=== PATIENT | male | born 1970 | race American Indian/Alaskan Native ===

== ENCOUNTER 2024-08-17 09:34 | Outpatient (AMB) | payer MEDICAID, SELFPAY ==
[2024-08-17 09:46] VITALS: BP 137/80; PULSE 51; RESP 16; TEMP 36.6; O2SAT 99; BMI 26.6
--- NOTE | 2024-08-17 09:46 | ACNOTE_ITS ---
Vital Signs 08/17/24 09:46 Height 1.83 m Height Method Stated Weight 89.131 kg Weight Measurement Method Standing Scale BMI 26.6 BP 137/80 H Blood Pressure Source Automatic Cuff Blood Pressure Location Left Upper Arm Position Sitting Respiration 16 Pulse 51 L Pulse Source Monitor Temp 97.8 F Temp Source Oral Pulse Oximetry (%) 99 Oxygen Delivery Method Room Air Allergies/Meds Allergies & Medications Allergies sulfamethoxazole [From Bactrim] Allergy (Severe, Verified 08/31/24 09:53) Rash trimethoprim [From Bactrim] Allergy (Severe, Verified 08/31/24 09:53) Rash diphenhydramine Allergy (Intermediate, Verified 08/31/24 09:53) RASH Medication Reconciliation metformin 1,000 mg tablet 1,000 mg PO BID 03/09/18 [History Confirmed 08/31/24] sitagliptin phosphate 25 mg tablet (Januvia) 25 mg PO QDAY 04/20/19 [History Confirmed 08/31/24] aspirin 81 mg tablet,delayed release 81 mg PO QDAY #30 tabs 08/17/24 [Rx Confirmed 08/31/24] cholecalciferol (vitamin D3) 1,250 mcg (50,000 unit) capsule 1,250 mcg PO QWEEK #5 caps 08/17/24 [Rx Confirmed 08/31/24] ketoconazole 2 % topical cream 1 applic topical BID #60 grams 08/17/24 [Rx Confirmed 08/31/24] loratadine 10 mg tablet 10 mg PO QDAY #30 tabs 08/17/24 [Rx Confirmed 08/31/24] ticagrelor 90 mg tablet (Brilinta) 90 mg PO BID #60 tabs 08/17/24 [Rx Confirmed 08/31/24] triamcinolone acetonide 0.1 % topical cream 1 applic topical BID #454 grams 08/17/24 [Rx Confirmed 08/31/24] MA Intake Visit Data Collection New Patient or Established: Established Patient (seen at [facility] within 3 years) Seen by Clinical Staff ONLY (RN/JAE): No Pain Present Currently: No Pain scale:: 0 Pain Scale Used: Smith-Bangura/Numerical PCP or OBGYN visit in last 3 months: Yes Do You Feel Safe at Home: Yes Smoking Status Smoking Status: Never smoker Immunization / Flu Flu Vaccine in the Last 12 Months: No Flu Vaccine Exclusion Criteria: No Exclusion Criteria Past Medical History Past Medical History NEUROLOGIC: Positive Neurological Disorders, Seizures (LAST ONE IN 1997) and Skelton's Palsy (AT 21 YRS OLD) CARDIAC: Positive Cardiac Disorders, Hypercholesterolemia and Hypertension (TAKES MED); Negative Congestive Heart Failure RESPIRATORY: Negative Chronic Obstructive Pulmonary Disease (COPD) GASTROINTESTINAL: Negative Gastrointestinal Disorders GENITOURINARY: Negative Genitourinary Disorders or Renal Disease MUSCULOSKELETAL: Positive Arthritis, Degenerative Disk Disease and Carpal Tunnel Syndrome (2009 RIGHT HAND) ENDOCRINE: Positive Endocrine Disorders and Diabetes Mellitus Type 2 (takes medication); Negative Diabetes Mellitus Type 1 HEMATOLOGIC: Negative Blood Disorders PSYCHO/SOCIAL: Positive Depression and Anxiety OTHER HISTORY: Positive Hospitalization (HOSP 1996 FOR IRREGULAR HR MAYBE STATED DUE TO PANIC ATTACK) and Chicken Pox; Negative Autoimmune Disease, Shingles, Falls, Blood Transfusions, Blood Transfusion Reaction, Anesthesia Reactions, Chemotherapy or Radiation Therapy Family History FAMILY HISTORY: Positive Family Respiratory Disorders (MOTHER (COPD)), Family Cardiac Disorders (MOTHER (HTN)) and Family Surgery (SISTER,MOTHER); Negative Family Psychiatric Problems, Family Gastrointestinal Problems, Family Cancer or Family Anesthesia Reaction Surgical History SURGICAL: Positive Joint Replacement; Negative Cardiac Surgery or Abdominal Surgery Social History SMOKING STATUS: Smoking status: Never smoker ALCOHOL: Alcohol Intake: Never HOUSING: Housing: Apartment Patient Portal Questionaires Social History Living Situation History Housing: Apartment Tobacco History Smoking Status: Never smoker Alcohol History Alcohol Intake: Never Domestic Abuse History Do You Feel Safe at Home: Yes Review of Systems Report any current symptoms Only answer those that you have currently: Past Medical History Past Medical History Have you ever been diagnosed with any of the following: Neurological Problems Seizures: Yes (LAST ONE IN 1997) Skelton's Palsy: Yes (AT 21 YRS OLD) Cardiology Problems Hypercholesterolemia: Yes Congestive Heart Failure: No Hypertension: Yes (TAKES MED) Respiratory Problems Chronic Obstructive Pulmonary Disease (COPD): No Genital/Urinary Problems Renal Disease: No Musculoskeletal Problems Arthritis: Yes Degenerative Disk Disease: Yes Carpal Tunnel Syndrome: Yes (2009 RIGHT HAND) Endocrine Problems Diabetes Mellitus Type 1: No Diabetes Mellitus Type 2: Yes (takes medication) Psychologic Problems Depression: Yes Anxiety: Yes Other Problems Hospitalization: Yes (HOSP 1996 FOR IRREGULAR HR MAYBE STATED DUE TO PANIC ATTACK) Autoimmune Disease: No Shingles: No Falls: No Blood Transfusions: No Blood Transfusion Reaction: No Anesthesia Reactions: No Chemotherapy: No Radiation Therapy: No Chicken Pox: Yes History of Present Illness HPI Narrative 54-year-old male with past medical history of coronary artery disease status p ost 1 stent placed in February 2024, hypertension, type 2 diabetes presenting to the [facility] to establish care. Patient has not been able to see a international logistics analyst since having stent placed; would like referral to cardiology. Stents were placed by Dr. Myers in [place]. Patient denies having any concerning cardiac symptoms at home, denies having chest pain/tightness, shortness of breath, palpitations, orthopnea, paroxysmal nocturnal dyspnea, lower extremity swelling. Patient also would like a complete lab workup and refill of medications.Patient has stopped taking his blood pressure and diabetes medications and has switched over to lifestyle modifications as he is not the biggest fan of medications. Patient presented today with his bedside who also provides some history. Review of Systems Review of Systems Narrative Review of Systems: All 12 systems assessed and the patient denies unless otherwise stated in HPI. Objective/Exam Narrative Physical exam: Physical Exam: GENERAL: Awake, quiet, answering questions appropriately, appears stated age HEENT: NC/AT. Moist mucosa. PERRLA/EOMI. CARDIO: Heart RRR, no obvious murmurs, no JVD. PULM: No coughing or visible SOB. Lungs CTA B/L. GI: Abdomen soft, NT/ND, +BS. SKIN/MSK/EXT: Onychomycosis of the left greater toe.No wounds/rashes/edema/amputations noted. +Pedal pulses present B/L. NEURO: Oriented x3, miner assistant strength 5/5, Moves extremities x4. Assessment & Plan Diagnosis / Problem List (1) Coronary artery disease: Status: Acute Qualifiers: Associated angina: without angina Coronary Disease-Associated Artery/Lesion type: [place] artery [place] vs. transplanted heart: [place] heart Qualified Code(s): I25.10 - Atherosclerotic heart disease of [place] coronary artery without angina pectoris Assessment & Plan: Patient had heart attack in February 2024; status post stent placement with Dr. Myers in [place]. Patient unaware which vessel the stent was placed in; but he knows it is 1 vessel Patient takes Brilinta 90 mg twice daily and aspirin 81 mg daily Patient also has history of high blood pressure and diabetes but has stopped taking medications and wants to do lifestyle changes at this time Patient also uses some creams for psoriasis and onychomycosis, also takes loratadine and vitamin D Plan: Will refer to cardiology, Dr. Francisco Carter in [place] Full labs, CBC, BMP, lipid panel, TSH, LFTs, magnesium, A1c, vitamin D Refilled medications as listed above Will follow-up in 1 week to go over labs Orders: Orders CBC 08/17/24 Mak Marie MD Thyroid Stimulating Hormone 08/17/24 Mak Marie MD Ambulatory Hemoglobin A1C 08/17/24 Mak Marie MD Alanine Aminotransferase 08/17/24 Mak Marie MD Alkaline Phosphatase 08/17/24 Mak Marie MD Basic Metabolic Panel 08/17/24 Mak Marie MD Vitamin D 25 Hydroxy Total 08/17/24 Mak Marie MD Lipid Panel 08/17/24 Mak Marie MD Aspartate Amino Transferase 08/17/24 Mak Marie MD Magnesium 08/17/24 Mak Marie MD Additional Assessment Attending note: I, Tico Larsen MD, attest that I was physically present for the orozco portions of the service and evaluated the patient with the resident and I reviewed and discussed the case with the resident and agree with the resident's findings and plans of care as documented above. New patient to clinic. Patient had stent placed in February 2024 for coronary artery disease. History of hypert ension and diabetes mellitus type 2. He has not been able to establish with a international logistics analyst for follow-up, requesting referral which will be made today. Denies any cardiac symptoms at present. Diabetes self-care reviewed including diet, exercise, footcare, eye care. He has stopped antihypertensives and diabetic medications, trying to manage condition with lifestyle changes. Need for continuation of Brilinta emphasized. We will do full laboratory assessment and follow-up afterwards. Tico Larsen MD Physician Billing New Patient New Patient: E/M Level 3-CPT 96886 Office Procedures [facility] Level of Care Nursing/Assessment Patient Status: Established Patient Nursing Assessment/Reassessment: Medication Reconciliation, Update PMH in EMR and Vital Signs Coordination of Care: Complex Care and Chronic Disease 1-5, Education Complex Pt/Fam, Results/Orders obtained and Staff clarify orders Established Patient Charge Established Patient Point Assignment: 90 Established Patient Point Charge: Level 3 (09-115)
== END 2024-08-17 11:13 | disposition home or self-care (01) ==
PROVIDERS: Supervising Provider Internal Medicine
DX: I25.10 Atherosclerotic heart disease of native coronary artery without angina pectoris (principal); Z95.5 Presence of coronary angioplasty implant and graft; I10 Essential (primary) hypertension; E11.9 Type 2 diabetes mellitus without complications
CPT/HCPCS: 99213; G0463

== ENCOUNTER 2024-08-31 09:34 | Outpatient (AMB) | payer MEDICAID, SELFPAY ==
--- NOTE | 2024-08-31 09:47 | PD.RESCLINIC ---
Vital Signs 08/31/24 09:52 Height 1.83 m Height Method Stated Weight 89.414 kg Weight Measurement Method Standing Scale BMI 26.6 BP 150/76 H Blood Pressure Source Automatic Cuff Blood Pressure Location Left Upper Arm Position Sitting Respiration 19 Pulse 71 Pulse Source Monitor Temp 97.7 F Temp Source Oral Pulse Oximetry (%) 98 Oxygen Delivery Method Room Air Allergies/Meds Allergies & Medications Allergies sulfamethoxazole [From Bactrim] Allergy (Severe, Verified 08/31/24 09:53) Rash trimethoprim [From Bactrim] Allergy (Severe, Verified 08/31/24 09:53) Rash diphenhydramine Allergy (Intermediate, Verified 08/31/24 09:53) RASH Medication Reconciliation metformin 1,000 mg tablet 1,000 mg PO BID 03/09/18 [History Confirmed 08/31/24] sitagliptin phosphate 25 mg tablet (Januvia) 25 mg PO QDAY 04/20/19 [History Confirmed 08/31/24] aspirin 81 mg tablet,delayed release 81 mg PO QDAY #30 tabs 08/17/24 [Rx Confirmed 08/31/24] cholecalciferol (vitamin D3) 1,250 mcg (50,000 unit) capsule 1,250 mcg PO QWEEK #5 caps 08/17/24 [Rx Confirmed 08/31/24] ketoconazole 2 % topical cream 1 applic topical BID #60 grams 08/17/24 [Rx Confirmed 08/31/24] loratadine 10 mg tablet 10 mg PO QDAY #30 tabs 08/17/24 [Rx Confirmed 08/31/24] ticagrelor 90 mg tablet (Brilinta) 90 mg PO BID #60 tabs 08/17/24 [Rx Confirmed 08/31/24] triamcinolone acetonide 0.1 % topical cream 1 applic topical BID #454 grams 08/17/24 [Rx Confirmed 08/31/24] MA Intake Visit Data Collection New Patient or Established: Established Patient (seen at [facility] within 3 years) Seen by Clinical Staff ONLY (RN/JAE): No Pain Present Currently: No Pain scale:: 0 Pain Scale Used: Smith-Bangura/Numerical PCP or OBGYN visit in last 3 months: Yes Do You Feel Safe at Home: Yes Smoking Status Smoking Status: Never smoker Immunization / Flu Flu Vaccine in the Last 12 Months: No Flu Vaccine Exclusion Criteria: No Exclusion Criteria Past Medical History Past Medical History NEUROLOGIC: Positive Neurological Disorders, Seizures (LAST ONE IN 1997) and Skelton's Palsy (AT 21 YRS OLD) CARDIAC: Positive Cardiac Disorders, Hypercholesterolemia and Hypertension (TAKES MED); Negative Congestive Heart Failure RESPIRATORY: Negative Chronic Obstructive Pulmonary Disease (COPD) GASTROINTESTINAL: Negative Gastrointestinal Disorders GENITOURINARY: Negative Genitourinary Disorders or Renal Disease MUSCULOSKELETAL: Positive Arthritis, Degenerative Disk Disease and Carpal Tunnel Syndrome (2009 RIGHT HAND) ENDOCRINE: Positive Endocrine Disorders and Diabetes Mellitus Type 2 (takes medication); Negative Diabetes Mellitus Type 1 HEMATOLOGIC: Negative Blood Disorders PSYCHO/SOCIAL: Positive Depression and Anxiety OTHER HISTORY: Positive Hospitalization (HOSP 1996 FOR IRREGULAR HR MAYBE STATED DUE TO PANIC ATTACK) and Chicken Pox; Negative Autoimmune Disease, Shingles, Falls, Blood Transfusions, Blood Transfusion Reaction, Anesthesia Reactions, Chemotherapy or Radiation Therapy Family History FAMILY HISTORY: Positive Family Respiratory Disorders (MOTHER (COPD)), Family Cardiac Disorders (MOTHER (HTN)) and Family Surgery (SISTER,MOTHER); Negative Family Psychiatric Problems, Family Gastrointestinal Problems, Family Cancer or Family Anesthesia Reaction Surgical History SURGICAL: Positive Joint Replacement; Negative Cardiac Surgery or Abdominal Surgery Social History SMOKING STATUS: Smoking status: Never smoker ALCOHOL: Alcohol Intake: Never HOUSING: Housing: Apartment Patient Portal Questionaires Social History Living Situation History Housing: Apartment Tobacco History Smoking Status: Never smoker Alcohol History Alcohol Intake: Never Domestic Abuse History Do You Feel Safe at Home: Yes Review of Systems Report any current symptoms Only answer those that you have currently: Past Medical History Past Medical History Have you ever been diagnosed with any of the following: Neurological Problems Seizures: Yes (LAST ONE IN 1997) Skelton's Palsy: Yes (AT 21 YRS OLD) Cardiology Problems Hypercholesterolemia: Yes Congestive Heart Failure: No Hypertension: Yes (TAKES MED) Respiratory Problems Chronic Obstructive Pulmonary Disease (COPD): No Genital/Urinary Problems Renal Disease: No Musculoskeletal Problems Arthritis: Yes Degenerative Disk Disease: Yes Carpal Tunnel Syndrome: Yes (2009 RIGHT HAND) Endocrine Problems Diabetes Mellitus Type 1: No Diabetes Mellitus Type 2: Yes (takes medication) Psychologic Problems Depression: Yes Anxiety: Yes Other Problems Hospitalization: Yes (HOSP 1996 FOR IRREGULAR HR MAYBE STATED DUE TO PANIC ATTACK) Autoimmune Disease: No Shingles: No Falls: No Blood Transfusions: No Blood Transfusion Reaction: No Anesthesia Reactions: No Chemotherapy: No Radiation Therapy: No Chicken Pox: Yes History of Present Illness HPI Narrative Patient is a 54 year old male with history of coronary artery disease (status post 1 stent placed in February 2024), hypertension, and type 2 diabetes who presented to the [facility] for follow up from 08/17 visit, when patient was referred to cardiology and lab work was ordered. Today the patient denies any complaints, reports feeling well, and is here for lab review. CBC, BMP, Lipid panel, A1c, TSH, LFTs, and magnesium were reviewed, pertinent for A1c of 7.8, fasting glucose 151, and HDL 34 with LDL 129. Patient and his state they prefer natural approaches to healthcare, are not interested in any additional medications today. They also endorse his A1c has been in the 8+ range, they have improved it with diet and excercise. Reviewed labs with patient today and counseled on diabetes and hyperlipidemia control. Offered patient statin and ACEi medications, however patient declined. Also offered additional diabetic medications but patient also declined. Pending cardiology referral, has been difficult given patient's insurance coverage. Medical assistants working on referral today, possibly in [place]. Patient advised for follow up appointment in 3 months or earlier if any new or worsening symptoms occur. Review of Systems Review of Systems Narrative Review of Systems: GENERAL: Denies fevers/chills or diaphoresis. HEENT: Denies headache or visual/hearing changes. Denies nasal discharge. NEURO: Denies unusual weakness or difficulty speaking. CARDIO: Denies chest pain or palpitations. PULM: Denies SOB, coughing, or wheezing. GI: Denies abdominal pain, nausea, vomiting, diarrhea URO: Denies burning/itching/pain/urinary changes. MSK/EXT/SKIN: Denies joint/skeletal/muscle pain Objective/Exam Narrative Physical exam: General: AOx3, cooperative, in no acute distress HEENT: Atraumatic/normocephalic, [place], neck supple without masses Heart: RRR, S1 and S2 without clicks or murmurs Lungs: Clear on auscultation bilaterally, no difficulty breathing Abdomen: Soft, nontender. Bowel sounds present on all quadrants, no organomegaly Skin: Intact, no cyanosis or edema noted. Neuro: No focal neurological deficits noted Assessment & Plan Diagnosis / Problem List (1) Coronary artery disease: Status: Acute Qualifiers: Associated angina: without angina Coronary Disease-Associated Artery/Lesion type: [place] artery [place] vs. transplanted heart: [place] heart Qualified Code(s): I25.10 - Atherosclerotic heart disease of [place] coronary artery without angina pectoris Plan: Labs reviewed, statin and antihypertensive (ACEi) offered however patient declined. Pending cardiology referral, medical assistants working on referral. Previously referred to Dr. Carter in [place], [place] but may have to change referral if not coveraged by patient's insurance. (2) Diabetes mellitus: Status: Acute Qualifiers: Diabetes mellitus type: type 2 Plan: A1c 7.8 today, per patient has been 8+ in the past. Offered diabetic medications however patient declined, preferring to use diet and exercise to improve blood glucose levels. Orders: Referrals Cardiology I25.10 - Atherosclerotic heart disease of [place] coronary artery without angina pectoris Additional Assessment Attending note: I, Tico Larsen MD, attest that I was physically present for the orozco portions of the service and evaluated the patient with the resident and I reviewed and discussed the case with the resident and agree with the resident's findings and plans of care as documented above. Follow-up visit. Labs reviewed. Hemoglobin A1c of 7.8. Patient declines any additional medication for diabetes or hyperlipidemia control. Patient wishes to continue with diet and exercise measures. Cardiology appointment pending, referral has been made. Patient's blood pressure more elevated today at 150/76, patient declines any medication for this. Continue to monitor. Will recheck labs at 3-month point. Need for compliance with Brilinta reinforced. Continue Januvia. Tico Larsen MD Additional Plan Patient case discussed with attending physician Dr. Chava Byrd DO PGY-3 Physician Billing Established Patient Established Patient: E/M Level 3-CPT 89444 Office Procedures [facility] Level of Care Nursing/Assessment Patient Status: Established Patient Nursing Assessment/Reassessment: Medication Reconciliation, Update PMH in EMR and Vital Signs Coordination of Care: Complex Care and Chronic Disease 1-5, Education Complex Pt/Fam, Results/Orders obtained and Staff clarify orders Established Patient Charge Established Patient Point Assignment: 90 Established Patient Point Charge: EP Level 3 (80-115)
[2024-08-31 09:52] VITALS: BP 150/76; PULSE 71; RESP 19; TEMP 36.5; O2SAT 98; BMI 26.6
== END 2024-08-31 10:28 | disposition home or self-care (01) ==
PROVIDERS: Supervising Provider Internal Medicine; Visit Provider Student in an Organized Health Care Education/Training Program
DX: I25.10 Atherosclerotic heart disease of native coronary artery without angina pectoris (principal); E11.9 Type 2 diabetes mellitus without complications
CPT/HCPCS: 99213; G0463